=== PATIENT | female | born 1985 | race Two or more races ===

== ENCOUNTER 2017-06-06 01:23 | Outpatient (CLI) | payer SELFPAY | END 2017-06-06 01:57 | disposition home or self-care (01) | LOC: LDOP 01:23 | PROVIDERS: ATTEND Obstetrics & Gynecology | DX: O26.899 Other specified pregnancy related conditions, unspecified trimester (principal); O62.9 Abnormality of forces of labor, unspecified; R10.9 Unspecified abdominal pain; Z3A.00 Weeks of gestation of pregnancy not specified | CPT/HCPCS: 59025; 99201; G0463 ==

== ENCOUNTER 2019-02-23 21:40 | Emergency (ER) | payer MEDICAID ==
[~2019-02-23] VITALS: Ht 162.6 cm; Wt 83.3 kg
[2019-02-23 21:42] VITALS: BP 143/102
[2019-02-23] MEDS ORDERED: KETOROLAC 30 MG/1 ML ONE (22:10)
[2019-02-23] MEDS ORDERED: KETOROLAC 30 MG/1 ML IM ONE (22:30)
== END 2019-02-23 22:29 | disposition home or self-care (01) ==
LOC: ED 21:53
DX: K01.1 Impacted teeth (principal); Z88.1 Allergy status to other antibiotic agents; Z88.5 Allergy status to narcotic agent
CPT/HCPCS: 96372; 99283; J1885

== ENCOUNTER 2021-01-20 02:06 | Emergency (ER) | payer MEDICAID ==
[2021-01-20 02:14] VITALS: BP 152/83
--- NOTE | 2021-01-20 02:17 | NUR ---
PT THINKS SHE SWALLOWED SOME METAL FROM A CAN THAT WAS CUT WITH MARINE. C/O THROAT PAIN WITH SOME BLOOD TINGED SPUTUM
[2021-01-20] MEDS ORDERED: LORazepam 2 MG/ML, 1ML ONE (02:19)
[2021-01-20] MEDS ORDERED: LORazepam 2 MG/ML, 1ML IVPush ONE (02:30)
[2021-01-20] MEDS ORDERED: SODIUM CHLORIDE FLUSH 10ML SYR IVF ONE (02:30)
--- NOTE | 2021-01-20 02:35 | NUR ---
break rn; pt to x ray at this time
--- NOTE | 2021-01-20 04:24 | NUR ---
PT LEFT WITHOUT PAPERWORK
--- NOTE | 2021-01-20 04:36 | NUR ---
PT ELOPED ER WITHOUT WARNING. UNK IF PT LEFT WITH IV IN PLACE IN RIGHT HAND. THERE IS NO INDICATION THAT PT TOOK IV OUT IN THE ROOM. [facility] CALLED WITH PT INFO SO [facility] CAN FOLLOW UP WITH PT AT HER HOME TO SEE IF IV IS STILL IN PLACE.
--- NOTE | 2021-01-20 06:12 | NUR ---
[facility] CALLED AND SAID PT WENT OVER THERE WITH IV IN PLACE AND THAT THEY REMOVED THE IV FROME PT HAND.
== END 2021-01-20 04:41 | disposition left against medical advice (07) ==
LOC: ED 04:34
DX: T17.208A Unspecified foreign body in pharynx causing other injury, initial encounter (principal); R09.89 Other specified symptoms and signs involving the circulatory and respiratory systems; J02.9 Acute pharyngitis, unspecified; E66.9 Obesity, unspecified; Z68.1 Body mass index [BMI] 19.9 or less, adult; X58.XXXA Exposure to other specified factors, initial encounter; Y93.89 Activity, other specified; Y92.89 Other specified places as the place of occurrence of the external cause; Y99.8 Other external cause status
CPT/HCPCS: 70360; 70490; 96374; 99284; J2060